=== PATIENT | female | born 1995 | race African-American/Black ===

== ENCOUNTER 2018-08-23 05:31 | Emergency (ER) | payer MEDICAID ==
[~2018-08-23] VITALS: Ht 160 cm; Wt 93.4 kg
[~2018-08-23 05:31] MED LIST: NORPTMEDS CO
[2018-08-23 05:49] VITALS: BP 147/95
[2018-08-23 06:05] LABS: Urine Bacteria FEW /hpf (None Seen); Urine Blood Negative /uL (Negative); Urine Specific Gravity 1.015 (1.001-1.035); Urine WBC 1 /hpf (0 - 5)
[2018-08-23 06:13] LABS: Basophils # (auto) 0.1 uL; Basophils % (auto) 0.9 % (0.0-2.0); Eosinophils # (auto) 0.1 uL; Eosinophils % (auto) 1.6 % (0.0-7.0); Hematocrit 35.3 % (36.0-46.0); Hemoglobin 11.8 g/dL (12.2-16.2); Lymphocytes # (auto) 2.9 uL; Lymphocytes % (auto) 35.3 % (10.0-50.0); Mean Corpuscular Hemoglobin 27.9 pg (28.0-32.0); Mean Corpuscular Hgb Conc. 33.3 g/dL (32.0-36.0); Mean Corpuscular Volume 83.7 fL (80.0-100.0); Monocytes # (auto) 0.7 uL; Monocytes % (auto) 9.1 % (0.0-12.0); Neutrophils # (auto) 4.3 uL; Neutrophils % (auto) 53.1 % (37.0-80.0); Platelet Count (auto) 277 10^3/uL (140-450); Red Blood Cells 4.21 10^6/uL (4.0-5.20); Red Cell Distribution Width 16.3 % (11.8-14.3); White Blood Cell 8.1 10^3/uL (4.4-10.8)
[2018-08-23 06:21] LABS: Potassium 3.5 mmol/L (3.5-5.1)
[2018-08-23 06:24] LABS: Albumin 3.6 g/dL (3.4-5.0); Calcium 8.6 mg/dL (8.5-10.1)
[2018-08-23 06:28] LABS: BUN/Creatinine Ratio 10.3; Bilirubin, Total 0.3 mg/dL (0.2-1.0)
== END 2018-08-23 06:21 | disposition left against medical advice (07) ==
LOC: ER 05:31
DX: R35.0 Frequency of micturition (principal); R10.30 Lower abdominal pain, unspecified; Z53.21 Procedure and treatment not carried out due to patient leaving prior to being seen by health care provider
CPT/HCPCS: 36415; 80053; 81001; 81025; 85025

== ENCOUNTER → 2020-04-05 | Emergency (ER) | payer MEDICAID ==
[~2020-04-05] VITALS: Ht 160 cm; Wt 100.7 kg
[~2020-04-05] MED LIST changes: +PENICILLIN G BENZ 1200000 UNITS/2 ML SYRG IM ONE; +diphenhdrAMINE HCL 25 MG CAP PO ONE; +methylPREDNISolone SOD SUCC 125 MG/2 ML VL IM ONE
[2020-04-05 19:38] VITALS: BP 144/93
[2020-04-05 20:51] LABS: Urine Bacteria NONE SEEN /hpf (None Seen); Urine Blood Negative /uL (Negative); Urine Mucus FEW (None Seen); Urine WBC 10 /hpf (0 - 5)
[2020-04-05 21:00] LABS: Amphetamine Screen, Urine POSITIVE (NEGATIVE); Barbiturate Scree,Urine NEGATIVE (NEGATIVE); Benzodiazephine Screen, Urine NEGATIVE (NEGATIVE); Cannabinoid Screen, Urine NEGATIVE (NEGATIVE); Cocaine Screen, Urine NEGATIVE (NEGATIVE); Opiate Scree,Urine NEGATIVE (NEGATIVE); Phencyclidine Screen, Urine NEGATIVE (NEGATIVE)
== END | disposition home or self-care (01) ==
LOC: ER 18:41
DX: N39.0 Urinary tract infection, site not specified (principal); F15.10 Other stimulant abuse, uncomplicated; F12.10 Cannabis abuse, uncomplicated; Z20.2 Contact with and (suspected) exposure to infections with a predominantly sexual mode of transmission
CPT/HCPCS: 80307; 81001

== ENCOUNTER 2020-12-23 00:30 | Emergency (ER) | payer MEDICAID ==
[~2020-12-23] VITALS: Ht 160 cm; Wt 104.3 kg
[~2020-12-23 00:30] MED LIST changes: -PENICILLIN G BENZ 1200000 UNITS/2 ML SYRG IM ONE; -diphenhdrAMINE HCL 25 MG CAP PO ONE; -methylPREDNISolone SOD SUCC 125 MG/2 ML VL IM ONE
[2020-12-23 01:55] LABS: Basophils # (auto) 0.1 10 ^3/uL (0-0.2); Basophils % (auto) 0.8 % (0.0-2.0); Eosinophils # (auto) 0.2 10 ^3/uL (0-0.8); Eosinophils % (auto) 2.8 % (0.0-7.0); Hematocrit 35.8 % (36.0-46.0); Hemoglobin 11.9 g/dL (12.2-16.2); Lymphocytes # (auto) 2.5 10 ^3/uL (0.4-5.4); Lymphocytes % (auto) 31.9 % (10.0-50.0); Mean Corpuscular Hemoglobin 27.8 pg (28.0-32.0); Mean Corpuscular Hgb Conc. 33.1 g/dL (32.0-36.0); Mean Corpuscular Volume 84.1 fL (80.0-100.0); Monocytes # (auto) 0.7 10 ^3/uL (0-1.3); Monocytes % (auto) 9.2 % (0.0-12.0); Neutrophils # (auto) 4.3 10 ^3/uL (1.6-8.6); Neutrophils % (auto) 55.3 % (37.0-80.0); Nucleated Red Blood Cells % 0.1 %; Red Blood Cells 4.26 10^6/uL (4.0-5.20); White Blood Cell 7.7 10^3/uL (4.4-10.8)
[2020-12-23 02:11] LABS: Albumin 3.5 g/dL (3.4-5.0); BUN/Creatinine Ratio 9.3; Calcium 9.1 mg/dL (8.5-10.1); Potassium 3.8 mmol/L (3.5-5.1)
[2020-12-23 02:13] LABS: Bilirubin, Total 0.2 mg/dL (0.2-1.0); Total Protein 8.3 g/dL (6.4-8.2)
[2020-12-23 06:30] VITALS: BP 140/99
== END 2020-12-23 07:51 | disposition left against medical advice (07) ==
LOC: ER 00:31
DX: R22.43 Localized swelling, mass and lump, lower limb, bilateral (principal); Z53.21 Procedure and treatment not carried out due to patient leaving prior to being seen by health care provider
CPT/HCPCS: 36415; 80053; 83880; 85025; J7030

== ENCOUNTER 2023-08-10 12:40 | Emergency (ER) | payer MEDICAID ==
[~2023-08-10] VITALS: Ht 160 cm; Wt 100.0 kg
[~2023-08-10 12:40] MED LIST changes: +GENT0.3S10 EACHEYE
[2023-08-10 13:48] LABS: Basophils # (auto) 0.1 10 ^3/uL (0-0.2); Basophils % (auto) 0.5 % (0.0-2.0); Eosinophils # (auto) 0.2 10 ^3/uL (0-0.8); Eosinophils % (auto) 1.2 % (0.0-7.0); Hematocrit 41.5 % (36.0-46.0); Hemoglobin 13.1 g/dL (12.2-16.2); Lymphocytes # (auto) 3.3 10 ^3/uL (0.4-5.4); Lymphocytes % (auto) 22.4 % (10.0-50.0); Mean Corpuscular Hemoglobin 27.4 pg (28.0-32.0); Mean Corpuscular Hgb Conc. 31.7 g/dL (32.0-36.0); Mean Corpuscular Volume 86.6 fL (80.0-100.0); Monocytes # (auto) 1.1 10 ^3/uL (0-1.3); Monocytes % (auto) 7.1 % (0.0-12.0); Neutrophils # (auto) 10.2 10 ^3/uL (1.6-8.6); Neutrophils % (auto) 68.8 % (37.0-80.0); Nucleated Red Blood Cells % 0.1 %; Red Blood Cells 4.79 10^6/uL (4.0-5.20); Red Cell Distribution Width 14.6 % (11.8-14.3); White Blood Cell 14.8 10^3/uL (4.4-10.8)
[2023-08-10 13:59] LABS: Chloride 104 mmol/L (98-107); Potassium 4.3 mmol/L (3.5-5.1); Sodium 137 mmol/L (136-145)
[2023-08-10 14:00] LABS: Anion Gap 9 (5-15); Carbon Dioxide 24 mmol/L (20-30)
[2023-08-10 14:05] LABS: BUN/Creatinine Ratio 16.5 (10.0-20.0); Blood Urea Nitrogen 13 mg/dL (9-23); Glucose 78 mg/dL (74-106)
[2023-08-10] MEDS: MORPHINE SULFATE 4 MG/ML SYR/VIAL IM ONE (16:08)
[2023-08-10] MEDS: DexAMETHasone SOD PHOS 10MG/1ML VIAL INJ IM ONE (16:18)
[2023-08-10] MEDS: cefTRIAXone SOD 1,000 MG VL IM ONE (16:20)
[2023-08-10] MEDS ORDERED: IBUP-1454 PO (16:25)
[2023-08-10] MEDS ORDERED: AUG875T PO (16:25)
[2023-08-10] MEDS: IOHEXOL 300 MG/ML 100ML BOTTLE IJ ONE (16:41)
[2023-08-10 17:08] VITALS: BP 159/107; PULSE 107; RESP 18; TEMP 98.4; O2SAT 100
== END 2023-08-10 17:03 | disposition home or self-care (01) ==
LOC: EDBD 12:40 → ER 12:40
DX: K02.9 Dental caries, unspecified (principal); F17.210 Nicotine dependence, cigarettes, uncomplicated
CPT/HCPCS: 36415; 70486; 80048; 85025; 96372; 99285; J0696; J1100; J2270; Q9967

== ENCOUNTER 2024-03-30 00:01 | Emergency (ER) | payer MEDICAID ==
[~2024-03-30] VITALS: Ht 160 cm; Wt 103.1 kg
[~2024-03-30 00:01] MED LIST changes: +AUG875T PO; +IBUP-1454 PO
[2024-03-30 00:07] VITALS: BP 158/90; PULSE 106; RESP 20; O2SAT 100
== END 2024-03-30 07:16 | disposition left against medical advice (07) ==
LOC: ER 00:01
DX: R10.2 Pelvic and perineal pain (principal); Z53.21 Procedure and treatment not carried out due to patient leaving prior to being seen by health care provider